=== PATIENT | female | born 1980 | race Hispanic/Latino ===

== ENCOUNTER 2017-09-01 11:25 | Day surgery (SDC) | payer BC ==
[2017-08-28 13:04] VITALS: BMI 28.1
[2017-09-01 12:00] LABS: HEMOGLOBIN 13.6 g/dL (12.0-16.0); MEAN CELL VOLUME 86.7 fl (81.0-99.0); MEAN CORPUSCULAR HEMOGLOBIN 30.1 pg (27.0-31.0); MEAN CORPUSCULAR HGB CONC 34.7 g/dL (33.0-37.0); RBC 4.53 Mil/uL (3.80-5.20); RED CELL DISTRIBUTION WIDTH 12.4 % (11.5-14.5); WHITE BLOOD COUNT 6.3 K/uL (4.8-10.8)
[2017-09-01] MEDS ORDERED: Bupivacaine HCl 0.5% PF (30 ml) Inj ONE (16:06)
[2017-09-01] MEDS ORDERED: Propofol 10 mg/ml Inj (20 ML) ONE (16:21)
[2017-09-01] MEDS ORDERED: Lidocaine 4% (Laryng-O-Jet) Kit MM ONE (16:22)
[2017-09-01] MEDS ORDERED: Succinylcholine 200 mg/10 ml Inj IV ONE (16:22)
[2017-09-01] MEDS ORDERED: Rocuronium 10 mg/ml (5 ml) ONE (16:22)
[2017-09-01] MEDS ORDERED: Neostigmine 1:1000 (1 mg/ml) Inj ONE (16:27)
[2017-09-01] MEDS ORDERED: Dexamethasone 4 mg/1 ml ONE (16:27)
[2017-09-01] MEDS ORDERED: Lactated Ringer's 1,000 ML IV ONE ×5 (17:10→18:00)
[2017-09-01] MEDS ORDERED: Midazolam 2 MG/2 ML VIAL ONE (17:13)
[2017-09-01] MEDS: Bupivacaine HCl 0.5% PF (30 ml) Inj ONE ×2 (17:35→17:44)
[2017-09-01] MEDS ORDERED: HYDROmorphone 0.5 mg/0.5 ml ISec IVP PRN (19:37)
[2017-09-01] MEDS ORDERED: Oxycodone/Acetaminophen 5/325 mg Tab PO PRN (19:37)
--- NOTE | 2017-09-01 19:39 | PCM.ANESB5 ---
Transverse Abdominis Block - Transverse Abdominis Plane Date of Procedure: 09/01/17 Anesthesiologist: Dalila Pre-Procedure Diagnosis: Endometriosis Post-Procedure Diagnosis: Same Procedure Performed: Transverse Abdominis Plane Nerve Block Left, Transverse Abdominis Plane Nerve Block Right - Procedure Transverse Abdominis Plane Nerve Block: The procedure was explained to the patient that it is for post-operative pain management and would be performed after surgery. Consent was obtained prior to surgery after a thorough discussion with the patient regarding the benefits and possible complications of transverse abdominis plane block. After the surgery had concluded and before the patient emerged from general anesthesia, time-out was held with the circulating nurse to re-confirm the appropriate block. With the patient in supine position, the ultrasound probe was placed transverse to the abdominal wall at the mid-axillary line above the iliac crest of the appropriate side. The skin, subcutaneous tissue, fat, external oblique muscle, internal oblique muscle, and the transverse abdominis muscle were identified. The general area of the block site was then prepped with Betadine three times. At this point, a # 21-gauge Stimuplex 4-inch needle was inserted posterior to and in plane with the ultrasound probe and directed anteriorly. Needle was advanced under direct ultrasound visualization until it reached the plane between the internal oblique and transverse abdominis muscles. After appropriate placement, 2mL of local anesthetic solution was injected. When the transverse abdominis plane was observed expanding in an ellipsoid way, the rest of the solution was slowly injected. A total of ___20___ mL of __0.25___ % _ bupivicaine with 1:200,000 was used for this block. The needle was then removed and sterile dressing was applied. Similarly, the same procedure was performed on the other side using the same medications. The patient had stable vital signs throughout and had no untoward complications after emergence from general anesthesia in the recovery room.
[2017-09-01] MEDS ORDERED: Lactated Ringer's 1,000 ML IV SCH (19:45)
[2017-09-02 00:49] VITALS: RESP 19
[2017-09-02 01:23] VITALS: BP 109/71; PULSE 71; TEMP 97.9; O2SAT 95
--- NOTE | 2017-09-08 08:40 | PCM.OP ---
Operative Report - Operative Report Date of Surgery/Procedure: 09/01/17 Time of Surgery/Procedure: 10:00 Surgeon: Dr. Alexandro Ventura Recreation Therapy Aide: Dr. Sanchez Anesthesia/Sedation: general Pre-Operative Diagnosis: Abdominal pain and endometriosis Post-Operative Diagnosis: perirectal lesions Indication for Surgery: as above Operative Findings: perirectal endometriosis (times two) Procedure/Operation Description: 1-Excision perirectal endometriosis. Brief History: This 37 year old woman was already brought to the operating room by Dr. Sol when he noted perirectal involvement and intraoperative general surgery was cosulted. Description of the Procedure: Dr. Sol had already initiated the robotic operation (separate dictation Dr. Sol). After taking control of the robotic console thge first lesion, more proximal, was incised with electrocautery and then lifted with blunt and sharp disection. The lesion was removed en-bloc and sent separately to pathology. The second lesion in the rectum wqas excised in a simillar manner and sent separately to pathology. The operation was then turned over to Dr. Sol (separate dictationDr. Sol). Estimated Blood Loss: 5 cc Complications: none Specimen: perirectal endometriosis (times two) Discharge & Condition: stable
--- NOTE | 2017-09-09 05:00 | OP ---
PROCEDURE DATE: 09/01/2017 PREOPERATIVE DIAGNOSES: Pelvic pain, dysmenorrhea, and dyspareunia. POSTOPERATIVE DIAGNOSES: Pelvic pain, dysmenorrhea, and dyspareunia plus pelvic endometriosis. PROCEDURE PERFORMED: Cystoscopy with bilateral ureteral catheterization, injection of IC-Green dye, robotic da Irene laparoscopy and excision of endometriosis, bilateral ureterolysis, and excision of rectal mass by Dr. Alexandro Ventura. SURGEON: Daniel Sol MD STEEL DIE ENGRAVER: Alexandro Ventura MD from General Surgery. TYPE OF ANESTHESIA: General endotracheal. ESTIMATED BLOOD LOSS: Minimal. COMPLICATIONS: None. SAMPLES: Multiple samples sent to Pathology both from the right pelvic sidewall, left pelvic sidewall, rectal space, ovarian fossa, all suspicious of endometriosis. INDICATION FOR THE PROCEDURE: The patient is a 37-year-old female with history of dysmenorrhea, dyspareunia, and pelvic pain. She was counseled prior to the surgery with regards to risks and benefits of the procedure and the possibility of this to ameliorate her symptoms. In the office, she had an exam suspicious of endometriosis and she signed the consent and then she was taken to the OR for the procedure. DESCRIPTION OF PROCEDURE: After adequate anesthesia was obtained, the patient was placed in dorsal lithotomy position with extreme care to make sure the patient was positioned in the appropriate way and without hyperextended or hyperflexing her hips. A time-out was taken according to hospital policy and the procedure was started. A cystoscope was inserting to the bladder under direct visualization and both ureteral ostia appeared to be in normal anatomical position. A estrada cystoscopy was performed revealing a normal bladder with no lesions or stones. The left ureter was catheterized utilizing a 5-[place] open-ended catheter, 5 mL of IC-Green were injected into the distal ureter. Again, on the contralateral ureter, IC-Green was also utilized to identify the right ureter and distally injecting 5 mL of IC-Green into the distal ureter. The stents were then removed. The cystoscope was removed. A 16-[place] Perez was placed into the bladder. Attention was then on the vaginal area where a speculum was placed into the vagina. The anterior lip of the cervix was grasped. The cervix was gently dilated and the hysteroscopy was performed revealing the presence of a normal-appearing cavity with both normal tubal ostia. At this point, attention was on the abdomen where an open laparoscopy was performed utilizing standard technique. The abdomen was entered and a blunt cannula was inserted into the uterine cavity. At this point, attention was on the abdomen where the upper abdomen was explored and appeared to be in normal. The pelvis appeared to have multiple implants of endometriosis. At this point, additional ports were inserted, left upper quadrant, right upper quadrant, and left mid quadrant. The da Irene Xi robot was then docked and the procedure was started. Attention was then on the left hand side where some adhesions within the colon and left pelvic sidewall were taken down. After dissection was done, the ureter was visualized, utilizing fluorescent technology. The peritoneum was progressively dissected off the pelvic sidewall and the ureter lateralized and the dissection proceeded all the way from the pelvic brim all the way to the ovarian fossa where the uterine artery was seen crossing over. A full dissection of peritoneum was then performed, all the way down with the bottom margin of the uterosacral ligament. This excision containing endometriosis was sent to Pathology. The ureter then was fully dissected and free of any lesions. Attention was anteriorly and centrally where a longitudinal incision was made in the posterior aspect of the cervix and then a full dissection was performed, progressing downward and anteriorly all the way opening the rectovaginal septum and opening the space and being able to excise a large area of peritoneum containing endometriosis. At this point, attention was on the right pelvic sidewall where again the peritoneum was entered the pelvic brim and after identifying the ureter thanks to fluorescent technology, a full dissection was again performed in a very careful step by step fashion, progressing the dissection all the way step by step, all the way from the right pelvic sidewall all the way down with a lower marginal dissection being in the right uterosacral ligament all the way down to the ovarian fossa obtaining a large sample of peritoneum which was sent to Pathology. A couple of area of endometriosis were in the rectal and perirectal area and these were taken all by Dr. Alexandro Ventura from General Surgery, he will dictate these separately. At this point, it was checked for hemostasis and appeared to be excellent. All the instruments were then removed. The incisions were closed with 0 PDS for the fascia and 4-0 Monocryl for the skin. At the end of the procedure, all tapes and instruments counts were correct. The patient tolerated the procedure well and was taken to the recovery room in excellent condition. Daniel Sol MD [id number]
== END 2017-09-02 03:16 | disposition home or self-care (01) ==
LOC: H.OPSURG 11:25 → H.MEDSURG1 21:29 → H.OPSURG 09-02 03:16
PROVIDERS: ATTEND Obstetrics & Gynecology Reproductive Endocrinology
DX: N80.3 Endometriosis of pelvic peritoneum (principal); N94.6 Dysmenorrhea, unspecified; R10.2 Pelvic and perineal pain; N94.10 Unspecified dyspareunia
CPT/HCPCS: 36415; 45171; 58558; 58662; 64488; 85027; 86850; 86900; 88305; C1729; J0131; J0171; J0330; J0690; J1100; J1170; J1885; J2001; J2250; J2704; J2710; J2765; J3010; J7030; J7040; J7120